=== PATIENT | female | born 1945 | race Caucasian/White ===

== ENCOUNTER 2021-02-02 18:19 | Inpatient (IN) ==
[2021-02-03] MEDS ORDERED: Perflutren Lipid Microsphere 1.3 ML in 0.9 % Sodium Chloride 8.7 ML IVP PRN (01:09)
[2021-02-03] MEDS ORDERED: Naloxone 0.4 MG/ML INJ IVP PRN ×2 (01:12→17:36)
[2021-02-03] MEDS ORDERED: Acetaminophen 325 MG TABLET PO PRN (01:12)
[2021-02-03] MEDS ORDERED: Ondansetron 4 MG/2 ML VIAL IVP PRN ×2 (01:12→17:36)
[2021-02-03] MEDS ORDERED: tiZANidine 4 MG TABLET PO PRN (01:14)
[2021-02-03] MEDS ORDERED: 0.9 % Sodium Chloride 1,000 ML IVC SCH (01:15)
[2021-02-03] MEDS ORDERED: *HR* Dextrose 50 % in Water (Vial) 50 ML VIAL IVP PRN (01:24)
[2021-02-03] MEDS ORDERED: D5% in Water 1,000 ML IVC PRN (01:24)
[2021-02-03] MEDS ORDERED: Dextrose Gel 15 GM/37.5 ML TUBE PO PRN ×2 (01:24)
[2021-02-03 02:47] LABS: Hematocrit 30.3 % (37.5-50.1); Mean Corpuscular Hemoglobin 32.3 pg (28.0-33.3); Mean Corpuscular Volume 97.7 fL (83.0-100.0); Mean Platelet Volume 9.3 fL (9.4-12.4); Platelet Count 277 K/mcL (140-400); Red Cell Distribution Width 13.6 % (11.5-14.5); White Blood Count 9.9 K/mcL (4.3-11.1)
[2021-02-03 02:53] LABS: INR 1.2; Prothrombin Time 13.6 Seconds (9.4-12.1)
[2021-02-03 02:56] LABS: Activated Partial Thrombo Time 27.7 Seconds (26.0-36.0)
[2021-02-03 03:06] LABS: BUN/Creatinine Ratio 17 (6-26); Blood Urea Nitrogen 12 mg/dL (8-23); Calcium 8.4 mg/dL (8.6-10.3); Carbon Dioxide 29 mEq/L (23-29); Chloride 105 mEq/L (98-107); Cholesterol 145 mg/dL (< 200); Glucose 190 mg/dL (70-105); HDL Cholesterol 36 mg/dL (40-59); LDL Cholesterol,Calculated 95 mg/dL (< 100); Magnesium 1.8 mg/dL (1.6-2.6); Osmolality,Calculated 293 (280-300); Potassium 3.7 mEq/L (3.5-5.1); Sodium 139 mEq/L (136-145); Triglycerides 69 mg/dL (< 150); eGFR For African Americans > 60 (> 60); eGFR For Non-African Americans > 60 (> 60)
[2021-02-03] MEDS: *HR* OxyCODONE Immed Rel 5 MG TABLET PO PRN (03:06)
[2021-02-03 03:07] LABS: % Iron Saturation 5 % (20-55); Iron 14 mcg/dL (65-175); Transferrin 196 mg/dL (203-362)
[2021-02-03 03:25] LABS: Estimated Average Glucose 140 mg/dl; Ferritin 378 ng/mL (20-250); Hemoglobin A1C 6.5 %
[2021-02-03 03:33] LABS: Folate > 22.3 ng/mL (3.0-16.0); Vitamin B12 297 pg/mL (250-1100); Vitamin D 25 Hydroxy 24 ng/mL (30-80)
[2021-02-03] MEDS: Aspirin Enteric Coated 81 MG Tablet PO SCH (08:46)
[2021-02-03] MEDS: lisinopriL 5 MG TABLET PO SCH (08:47)
[2021-02-03] MEDS: Insulin LISPRO 300 UNITS/3 ML VIAL SUBQ SCH ×4 (08:59→23:34)
[2021-02-03 09:26] LABS: Bilirubin,Urine Negative (Negative); Blood,Urine Moderate (Negative); Clarity,Urine Turbid (Clear); Color,Urine Yellow (Yellow); Glucose,Urine (UA) Normal (Normal); Ketones,Urine Negative (Negative); Leukocyte Esterase,Urine Large (Negative); Mucus,Urine Many per lpf (None-Few); Nitrite,Urine Positive (Negative); Protein,Urine Trace mg/dL (Neg-Trace); RBC,Urine 15-30 per hpf (0-3); Renal Epithelial Cells,Urine Few per hpf (None-Few); Specific Gravity,Urine 1.021 (1.010-1.025); Transitional Epi Cells,Urine Few per hpf (None-Few); Urobilinogen,Urine Normal (Normal); WBC,Urine TNTC per hpf (0-3)
[2021-02-03 12:46] LABS: Alanine Aminotransferase 18 Units/L (7-52); Albumin 3.5 g/dL (3.5-5.7); Albumin/Globulin Ratio 1.6 (1.1-2.2); Alkaline Phosphatase 67 Units/L (34-104); Aspartate Amino Transferase 23 Units/L (13-39); BUN/Creatinine Ratio 21 (6-26); Bilirubin,Total 0.8 mg/dL (0.3-1.0); Blood Urea Nitrogen 12 mg/dL (8-23); Calcium 8.3 mg/dL (8.6-10.3); Carbon Dioxide 29 mEq/L (23-29); Chloride 107 mEq/L (98-107); Globulin 2.2 g/dL (2.4-3.5); Glucose 119 mg/dL (70-105); Osmolality,Calculated 293 (280-300); Potassium 3.7 mEq/L (3.5-5.1); Sodium 141 mEq/L (136-145); Thyroid Stimulating Hormone 4.059 mcIU/mL (0.340-5.600); Total Protein 5.7 g/dL (6.4-8.9); eGFR For African Americans > 60 (> 60); eGFR For Non-African Americans > 60 (> 60)
[2021-02-03] MEDS ORDERED: cefTRIAXone 1,000 MG in Water for inj. (sterile) 10 ML IVP SCH (13:00)
[2021-02-03] MEDS ORDERED: Vancomycin 1,000 MG VIAL ONE (13:02)
[2021-02-03] MEDS ORDERED: *HR* Propofol 200 MG/20 ML VIAL IVP ONE (13:52)
[2021-02-03] MEDS ORDERED: *HR* Succinylcholine 200 MG/10 ML VIAL IVP ONE (13:53)
[2021-02-03] MEDS ORDERED: Lidocaine HCL 4 ML Topical Solution (Laryng-O-Jet Kit Sterile Pak) TP ONE (13:53)
[2021-02-03] MEDS ORDERED: Lidocaine -MPF 2% 2 ML VIAL ONE (13:53)
[2021-02-03] MEDS ORDERED: Acetaminophen IV 1,000 MG/100 ML BAG IVPB ONE (13:58)
[2021-02-03] MEDS ORDERED: Morphine Sulfate/PF 5mg/10mL Vial ONE (13:58)
[2021-02-03] MEDS ORDERED: Tranexamic Acid 1,000 MG/10 ML VIAL ONE ×2 (14:56→15:00)
[2021-02-03] MEDS ORDERED: CeFAZolin Syr 2,000MG/20 ML 2,000 MG/20 ML SYRINGE IVPB ONE (15:03)
[2021-02-03] MEDS ORDERED: *HR* Rocuronium Bromide 50 MG/5 ML VIAL ONE (15:05)
[2021-02-03] MEDS ORDERED: Ondansetron 4 MG/2 ML VIAL ONE (15:06)
[2021-02-03] MEDS ORDERED: Sugammadex Sodium 200 MG/2 ML VIAL IV ONE (15:32)
[2021-02-03] MEDS ORDERED: *HR* Labetalol 20 MG/4 ML SYRINGE IVP ONE (16:55)
[2021-02-03] MEDS ORDERED: *HR* Promethazine 25 MG/ML VIAL IM PRN (17:36)
[2021-02-03] MEDS: Ketorolac 15 MG/ML VIAL IVP SCH ×2 (18:36→23:34)
[2021-02-03] MEDS ORDERED: Povidone-Iodine 45 ML, Sodium Chloride IRRigation 1,000 ML IR ONE (19:00)
[2021-02-03] MEDS ORDERED: TOTAL JOINT MIXTURE (100ML) INTRAART ONE (19:00)
[2021-02-03] MEDS: CeFAZolin 2 GM/120 ML BAG IVPB SCH (20:58)
[2021-02-03] MEDS: Ringers Solution, Lactated 1,000 ML IVC SCH (20:59)
[2021-02-04 06:12] LABS: Hemoglobin 8.7 g/dL (11.5-15.4); Mean Corpuscular HGB Conc 33.5 g/dL (31.6-35.5); Mean Corpuscular Hemoglobin 32.5 pg (28.0-33.3); Mean Platelet Volume 9.6 fL (9.4-12.4); Platelet Count 247 K/mcL (140-400); Red Blood Count 2.68 M/mcL (3.82-4.97); Red Cell Distribution Width 13.4 % (11.5-14.5); White Blood Count 12.6 K/mcL (4.3-11.1)
[2021-02-04] MEDS: Ketorolac 15 MG/ML VIAL IVP SCH ×4 (06:40→22:27)
[2021-02-04] MEDS: CeFAZolin 2 GM/120 ML BAG IVPB SCH (06:41)
[2021-02-04 06:59] LABS: BUN/Creatinine Ratio 21 (6-26); Blood Urea Nitrogen 11 mg/dL (8-23); Calcium 7.9 mg/dL (8.6-10.3); Carbon Dioxide 26 mEq/L (23-29); Chloride 107 mEq/L (98-107); Glucose 102 mg/dL (70-105); Osmolality,Calculated 288 (280-300); Potassium 3.6 mEq/L (3.5-5.1); Sodium 139 mEq/L (136-145); eGFR For African Americans > 60 (> 60); eGFR For Non-African Americans > 60 (> 60)
[2021-02-04] MEDS: Insulin LISPRO 300 UNITS/3 ML VIAL SUBQ SCH ×4 (07:44→22:27)
[2021-02-04] MEDS: Ringers Solution, Lactated 1,000 ML IVC SCH (08:19)
[2021-02-04] MEDS: Ascorbic Acid 500 MG TABLET PO SCH ×2 (08:20→16:11)
[2021-02-04] MEDS: Multivit/Ca/Min/Fe/FA 1 TAB TABLET PO SCH (08:20)
[2021-02-04] MEDS: Aspirin Enteric Coated 81 MG Tablet PO SCH (08:20)
[2021-02-04] MEDS: lisinopriL 5 MG TABLET PO SCH (08:21)
[2021-02-04] MEDS ORDERED: Meropenem 1,000 MG in 0.9 % Sodium Chloride Mini Bag 100 ML IVPB SCH (12:00)
[2021-02-04] MEDS: *HR* OxyCODONE Immed Rel 5 MG TABLET PO PRN (13:50)
[2021-02-05] MEDS: *HR* OxyCODONE Immed Rel 5 MG TABLET PO PRN ×2 (01:16→21:16)
[2021-02-05] MEDS: Ketorolac 15 MG/ML VIAL IVP SCH ×3 (06:30→17:48)
[2021-02-05 06:50] LABS: Hematocrit 26.5 % (35.3-44.9); Hemoglobin 8.8 g/dL (11.5-15.4); Mean Corpuscular HGB Conc 33.2 g/dL (31.6-35.5); Mean Corpuscular Hemoglobin 32.5 pg (28.0-33.3); Mean Corpuscular Volume 97.8 fL (83.0-100.0); Mean Platelet Volume 9.8 fL (9.4-12.4); Platelet Count 239 K/mcL (140-400); Red Blood Count 2.71 M/mcL (3.82-4.97); Red Cell Distribution Width 13.9 % (11.5-14.5)
[2021-02-05] MEDS: Ascorbic Acid 500 MG TABLET PO SCH ×2 (08:57→17:47)
[2021-02-05] MEDS: lisinopriL 5 MG TABLET PO SCH (08:57)
[2021-02-05] MEDS: Multivit/Ca/Min/Fe/FA 1 TAB TABLET PO SCH (08:57)
[2021-02-05] MEDS: Aspirin Enteric Coated 81 MG Tablet PO SCH (08:57)
[2021-02-05] MEDS: Insulin LISPRO 300 UNITS/3 ML VIAL SUBQ SCH ×4 (08:58→19:35)
[2021-02-05] MEDS: cephALEXin 500 MG CAPSULE PO SCH ×2 (12:24→20:17)
[2021-02-06] MEDS: Ketorolac 15 MG/ML VIAL IVP SCH ×4 (00:20→17:51)
[2021-02-06 05:12] LABS: Hematocrit 26.4 % (35.3-44.9); Hemoglobin 8.8 g/dL (11.5-15.4); Mean Corpuscular HGB Conc 33.3 g/dL (31.6-35.5); Mean Corpuscular Hemoglobin 32.5 pg (28.0-33.3); Mean Corpuscular Volume 97.4 fL (83.0-100.0); Mean Platelet Volume 9.9 fL (9.4-12.4); Platelet Count 252 K/mcL (140-400); Red Blood Count 2.71 M/mcL (3.82-4.97); Red Cell Distribution Width 13.7 % (11.5-14.5); White Blood Count 7.5 K/mcL (4.3-11.1)
[2021-02-06 05:28] LABS: BUN/Creatinine Ratio 30 (6-26); Blood Urea Nitrogen 14 mg/dL (8-23); Carbon Dioxide 30 mEq/L (23-29); Chloride 106 mEq/L (98-107); Glucose 109 mg/dL (70-105); Osmolality,Calculated 291 (280-300); Potassium 3.8 mEq/L (3.5-5.1); Sodium 140 mEq/L (136-145); eGFR For African Americans > 60 (> 60); eGFR For Non-African Americans > 60 (> 60)
[2021-02-06] MEDS: Multivit/Ca/Min/Fe/FA 1 TAB TABLET PO SCH (09:23)
[2021-02-06] MEDS: Aspirin Enteric Coated 81 MG Tablet PO SCH (09:23)
[2021-02-06] MEDS: Ascorbic Acid 500 MG TABLET PO SCH ×2 (09:24→17:51)
[2021-02-06] MEDS: Insulin LISPRO 300 UNITS/3 ML VIAL SUBQ SCH ×4 (09:24→20:18)
[2021-02-06] MEDS: cephALEXin 500 MG CAPSULE PO SCH ×2 (09:24→20:29)
[2021-02-06] MEDS: lisinopriL 5 MG TABLET PO SCH (09:24)
[2021-02-06] MEDS: *HR* OxyCODONE Immed Rel 5 MG TABLET PO PRN (20:32)
[2021-02-07] MEDS: Ketorolac 15 MG/ML VIAL IVP SCH ×4 (00:18→17:09)
[2021-02-07] MEDS: Insulin LISPRO 300 UNITS/3 ML VIAL SUBQ SCH ×4 (07:36→21:48)
[2021-02-07] MEDS: Ascorbic Acid 500 MG TABLET PO SCH ×2 (09:55→17:09)
[2021-02-07] MEDS: lisinopriL 5 MG TABLET PO SCH (09:55)
[2021-02-07] MEDS: Multivit/Ca/Min/Fe/FA 1 TAB TABLET PO SCH (09:55)
[2021-02-07] MEDS: cephALEXin 500 MG CAPSULE PO SCH ×2 (09:55→21:48)
[2021-02-07] MEDS: Aspirin Enteric Coated 81 MG Tablet PO SCH (09:55)
[2021-02-07] MEDS: *HR* OxyCODONE Immed Rel 5 MG TABLET PO PRN (21:48)
[2021-02-08] MEDS: Ketorolac 15 MG/ML VIAL IVP SCH ×2 (00:20→06:24)
[2021-02-08 07:38] VITALS: O2SAT 96
[2021-02-08] MEDS: Insulin LISPRO 300 UNITS/3 ML VIAL SUBQ SCH ×2 (07:55→13:09)
[2021-02-08] MEDS: cephALEXin 500 MG CAPSULE PO SCH (08:16)
[2021-02-08] MEDS: Multivit/Ca/Min/Fe/FA 1 TAB TABLET PO SCH (08:16)
[2021-02-08] MEDS: Ascorbic Acid 500 MG TABLET PO SCH (08:16)
[2021-02-08] MEDS: Aspirin Enteric Coated 81 MG Tablet PO SCH (08:16)
[2021-02-08] MEDS: lisinopriL 5 MG TABLET PO SCH (08:17)
[2021-02-08 11:22] VITALS: BP 146/73; PULSE 76; TEMP 98.1
[2021-02-08 13:15] LABS: Adenovirus Not Detected (Not Detect); Bordetella Pertussis Not Detected (Not Detect); Chlamydophila pneumoniae Not Detected (Not Detect); Coronavirus 229E Not Detected (Not Detect); Coronavirus HKU1 Not Detected (Not Detect); Coronavirus NL63 Not Detected (Not Detect); Coronavirus OC43 Not Detected (Not Detect); Human Metapneumovirus Not Detected (Not Detect); Human Rhinovirus/Enterovirus Not Detected (Not Detect); Influenza A Subtype 2009 H1 Not Detected (Not Detect); Influenza B Not Detected (Not Detect); Mycoplasma pneumoniae Not Detected (Not Detect); Parainfluenza Virus 1 Not Detected (Not Detect); Parainfluenza Virus 2 Not Detected (Not Detect); Parainfluenza Virus 3 Not Detected (Not Detect); Parainfluenza Virus 4 Not Detected (Not Detect); Respiratory Syncytial Virus Not Detected (Not Detect); SARS-CoV-2 Not Detected (Not Detect)
== END 2021-02-08 14:20 | DRG 522 ==
LOC: 3NENU → SUATTDRO 02-03 02:03 → EDSEX 02-03 02:03
PROVIDERS: ADMIT Pharmacist; ATTEND Internal Medicine